=== PATIENT | female | born 1975 | race Two or more races ===

== ENCOUNTER 2018-05-06 06:28 | Emergency (ER) | payer OTHER ==
[~2018-05-06] VITALS: Ht 160 cm; Wt 79.4 kg
--- NOTE | 2018-05-06 06:41 | NUR ---
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 PT COMPLAINING OF SOB. PT STATES "I'VE BEEN UNDER A LOT OF STRESS AT WORK". PT A/OX 4, RESPIRATION EVEN AND UNLABORED. SKIN WAR AND INTACT. V/S WNL. PT PLACED ON CONTINUOUS BATTER MIXER HELPER, WILL CONTINUE TO MONITOR.
--- NOTE | 2018-05-06 06:41 | NUR ---
ER PA AT BEDSIDE FOR EVALUATION
--- NOTE | 2018-05-06 06:44 | NUR ---
Lamar sheridan in [facility] - 05/06/18 at 0741 by JEFRY ER PA AT BEDSIDE FOR EVALUATION
--- NOTE | 2018-05-06 06:45 | NUR ---
NOTED VFIB ON TAPPER HELPER WITH NO PULSE DETECTED. PT NOTED TO BE CONTRACTED AND TENSE. PT WAS APNEIC. PT WAS BEING BAGGED WITH BVM. PT PLACED ON DFIB PADS. PT STILL ON TAPPER HELPER AND PULSE OX. AT BEDSIDE, RT CALLED TO BEDSIDE.
--- NOTE | 2018-05-06 06:48 | NUR ---
PER MD CHASE, PT WAS SHOCKED 200J. SINUS RHYTHM STATUS POST SHOCK.
--- NOTE | 2018-05-06 06:50 | NUR ---
PT BECAME COMBATIVE S/P DFIB. PT WAS CALMED DOWN BY ER STAFF. PT AAOX4. VITALS SIGNS STABLE. PT STILL ON CONTINUOUS EXHAUST TENDER AND PULSE OX. SEIZURE PRECAUTIONS INITIATED. WILL CONTINUE TO MONITOR.
[2018-05-06] MEDS ORDERED: LORAZEPAM INJ 2 MG/ML VIAL ONE (06:51)
[2018-05-06] MEDS ORDERED: AMIODARONE 900 MG in IV D5W 500 ML IV ONE (07:00)
[2018-05-06] MEDS ORDERED: IV NS 0.9% 1,000 ML BAG IV ONE (07:00)
[2018-05-06] MEDS ORDERED: AMIODARONE 150 MG in IV D5W 100 ML IV ONE (07:00)
[2018-05-06] MEDS ORDERED: LORAZEPAM INJ 2 MG/ML VIAL IVP ONE (07:00)
--- NOTE | 2018-05-06 07:04 | NUR ---
PT BROUGHT BY RADIOLOGY FOR CT
--- NOTE | 2018-05-06 07:06 | NUR ---
received report from Michelle BUI for jam.
--- NOTE | 2018-05-06 07:06 | NUR ---
CARDIO PAGED ITS SANIYA
[2018-05-06 07:12] LABS: BASOPHILS % (AUTO) 0.5 % (0.0-2.0); EOSINOPHILS % (AUTO) 1.5 % (0.0-6.0); HEMATOCRIT 47 % (33-45); HEMOGLOBIN 15.7 g/dL (11.5-14.8); LYMPHOCYTES % (AUTO) 41.7 % (20.0-44.0); MEAN CORPUSCULAR HGB CONC 33 g/dl (31.0-36.0); MEAN CORPUSCULAR VOLUME 94 fL (82-100); MONOCYTES # (AUTO) 0.7 /CMM (0.1-1.30); MONOCYTES % (AUTO) 7.7 % (2.0-12.0); NEUTROPHILS # (AUTO) 4.6 /CMM (1.8-8.9); NEUTROPHILS % (AUTO) 48.6 % (43.0-81.0); PLATELET COUNT (AUTO) 275 /CMM (150-450); RED BLOOD CELL COUNT(AUTO) 5.04 MIL/uL (4.0-5.2); WHITE BLOOD COUNT (AUTO) 9.5 K/uL (4.3-11.0)
[2018-05-06] MEDS ORDERED: Magnesium 1GM/D5W 100ML PREMIX 200 ML IV ONE (07:16)
--- NOTE | 2018-05-06 07:16 | NUR ---
PT RETURNED FROM CT
[2018-05-06 07:17] LABS: CARBON DIOXIDE 19 mmol/L (21-32); CHLORIDE 102 mmol/L (98-107); CREATININE 1.2 mg/dL (0.6-1.3); GLUCOSE 173 mg/dL (74-106); POTASSIUM 4.1 mmol/L (3.5-5.1); SODIUM SERUM 142 mmol/L (136-145); UREA NITROGEN, BLOOD 17 mg/dL (7-18)
[2018-05-06 07:24] LABS: ALANINE AMINOTRANSFERASE 24 U/L (12-78); ALBUMIN 4.1 g/dL (3.4-5.0); ALKALINE PHOSPHATASE 66 U/L (46-116); ASPARTATE AMINOTRANSFERASE 27 U/L (15-37); BILIRUBIN,DIRECT 0.2 mg/dL (0.0-0.2); BILIRUBIN,TOTAL 0.8 mg/dL (0.2-1.0); TOTAL PROTEIN, SERUM 7.5 g/dL (6.4-8.2)
[2018-05-06 07:26] LABS: SALICYLATE 1.5 mg/dL (2.8-20.0)
[2018-05-06 07:27] LABS: ACETAMINOPHEN < 10 ug/ml (10-30)
[2018-05-06] MEDS ORDERED: Magnesium 1 GM/2 ML VIAL IV ONE (07:30)
--- NOTE | 2018-05-06 07:36 | NUR ---
PT'S SISTER CONTACTED BY MD CHASE. PT RESTING COMFORTABLY IN BED. PT STILL ON CONTINUOUS MOLECULAR BIOLOGY DIRECTOR AND PULSE OX. NO S/S OF ACUTE DISTRESS NOTED. GAVE REPORT TO AM HAO FOR RENÉ.
--- NOTE | 2018-05-06 07:50 | NUR ---
CALLED [facility] FOR TRANSPORT FAX NUMBER IS [phone] SPOKE WITH ASHLEY.
[2018-05-06] MEDS ORDERED: HEPARIN SODIUM, PORCINE 5000 UNITS/1 ML VIAL ONE (08:10)
[2018-05-06] MEDS ORDERED: ASPIRIN 325 MG TABLET ONE (08:10)
--- NOTE | 2018-05-06 08:17 | NUR ---
DONNIE FROM [facility] CALLED. TRANSPORT WILL BE HERE IN 15 MINS
[2018-05-06 08:18] VITALS: BP 101/70
--- NOTE | 2018-05-06 08:18 | NUR ---
x ray electronics wiring technician at bed side.
[2018-05-06] MEDS ORDERED: HEPARIN SODIUM, PORCINE 5000 UNITS/1 ML VIAL IV ONE (08:30)
[2018-05-06] MEDS ORDERED: ASPIRIN 325 MG TABLET PO ONE (08:30)
--- NOTE | 2018-05-06 08:33 | NUR ---
Lamar sheridan in [facility] - 05/06/18 at 0836 by FOUZIA CALLED FOR JANIE BED
[2018-05-06] MEDS ORDERED: AMPH10TA4 PO (08:46)
--- NOTE | 2018-05-06 09:03 | NUR ---
called [facility] hospital laboratory technician and spoke to Sarah and report given for RENÉ.
--- NOTE | 2018-05-06 09:19 | NUR ---
Patient transferred via acls protocol going to [facility] accompanied by Shilo BUI and 2 emt's. in no apparent distress noted.
== END 2018-05-06 09:19 | disposition short-term general hospital (02) ==
LOC: ER 06:30
DX: I46.9 Cardiac arrest, cause unspecified (principal); I49.01 Ventricular fibrillation; R41.82 Altered mental status, unspecified; Z90.710 Acquired absence of both cervix and uterus
CPT/HCPCS: 36415; 70450; 71045; 80048; 80076; 80329; 82962; 83735; 84484; 85025; 85730; 87081; 93005 ×2; 93307; 96365; 96368; 96375; 99291; A4606; G0480; J0282 ×2; J1644; J2060; J3475; J7030; J7060 ×2